=== PATIENT | female | born 1975 | race Caucasian/White ===

== ENCOUNTER 2018-07-08 15:08 | Emergency (ER) | payer OTHER ==
[~2018-07-08] VITALS: Ht 152.4 cm; Wt 68.0 kg
[2018-07-08 15:16] VITALS: Ht 152.4 cm; Wt 68.0 kg
[2018-07-08 17:35] VITALS: BP 121/106
== END 2018-07-08 17:35 | disposition home or self-care (01) ==
LOC: ED 15:08
DX: R51 Headache (principal); R05 Cough; R11.2 Nausea with vomiting, unspecified; Z88.5 Allergy status to narcotic agent; Z90.710 Acquired absence of both cervix and uterus
CPT/HCPCS: J1885

== ENCOUNTER 2018-09-26 18:48 | Emergency (ER) | payer OTHER ==
[~2018-09-26] VITALS: Ht 152.4 cm; Wt 68.0 kg
[2018-09-26 19:04] VITALS: Ht 152.4 cm; Wt 68.0 kg
[2018-09-26 21:21] LABS: PLATELET COUNT 266 x10^3mcL (130-400); RED CELL DISTRIBUTION WIDTH 13.7 % (11.5-14.5)
[2018-09-26 21:32] LABS: CALCIUM 9.4 mg/dL (8.5-10.1); CHLORIDE SERUM 101 mmol/L (98-107); CREATININE SERUM 0.7 mg/dL (0.6-1.0); GFR1 > 60 mL/min; GLUCOSE SERUM 98 mg/dL (74-106); POTASSIUM SERUM 4.2 mmol/L (3.5-5.1); SODIUM SERUM 140 mmol/L (136-145)
[2018-09-26 21:37] LABS: ALBUMIN 4.3 g/dL (3.4-5.0); ALKALINE PHOSPHATASE 106 U/L (46-116); ALT/SGPT 36 U/L (14-59); AST/SGOT 17 U/L (15-37); BILIRUBIN TOTAL 0.22 mg/dL (0.20-1.00); TOTAL PROTEIN, SERUM 8.2 g/dL (6.4-8.2)
[2018-09-26 22:40] VITALS: BP 122/80
== END 2018-09-26 22:40 | disposition home or self-care (01) ==
LOC: ED 18:48
PROVIDERS: Emergency Medicine
DX: R51 Headache (principal); H93.12 Tinnitus, left ear; R20.2 Paresthesia of skin; R42 Dizziness and giddiness; Z88.5 Allergy status to narcotic agent
CPT/HCPCS: 36415; J2765

== ENCOUNTER 2019-03-24 22:51 | Emergency (ER) | payer OTHER ==
[~2019-03-24] VITALS: Ht 152.4 cm; Wt 69.9 kg
[2019-03-24 23:26] VITALS: Ht 152.4 cm; Wt 69.9 kg
[2019-03-25 03:24] VITALS: BP 112/73
== END 2019-03-25 03:24 | disposition home or self-care (01) ==
LOC: ED 22:51
DX: G44.209 Tension-type headache, unspecified, not intractable (principal); Z88.5 Allergy status to narcotic agent
CPT/HCPCS: J1885; J2765; J7030